=== PATIENT | female | born 1955 | race Caucasian/White ===

== ENCOUNTER 2016-06-08 10:09 | Emergency (ER) | payer OTHER ==
[~2016-06-08] VITALS: Ht 162.6 cm; Wt 77.1 kg
[2016-06-08 10:39] LABS: BILIRUBIN,URINE NEGATIVE (NEG); GLUCOSE,URINE NEGATIVE (NEG); NITRITE,URINE NEGATIVE (NEG); PROTEIN,URINE NEGATIVE (NEG-TRACE); UROBILINOGEN,URINE 0.2 mg/dL (0.2 mg/dL)
[2016-06-08 10:51] LABS: CALCIUM 9.2 mg/dL (8.5-10.1); CREATININE 0.8 mg/dL (0.6-1.0); GFR 73.7; POTASSIUM 3.4 mmol/L (3.5-5.1)
[2016-06-08] MEDS ORDERED: IBUP200T77 PO (10:53)
--- NOTE | 2016-06-08 10:53 | PHYS DOC ---
Past Medical History Past Medical History: No Pertinent History Past Surgical History: No Surgical History Alcohol Use: None Drug Use: None Adult General Chief Complaint Chief Complaint: ABDOMINAL PAIN HPI HPI 52-year-old female presenting to the emergency department with right lower quadrant abdominal pain for the past 48 hours. Her pain is sharp moderate intermittent. Currently it is 2-3 out of 10. It goes as high as 3-4 out of 10. It is not associated with nausea vomiting blood in stool. She does have a history of an ovarian cyst. She denies fevers or chills. She was able to eat breakfast this morning without difficulty. Her pain is nonradiating. She denies vaginal bleeding or vaginal discharge. Review of systems is negative for chest pain shortness of breath fevers chills. All other review of systems is negative unless otherwise noted in history of present illness. Review of Systems Review of Systems SEE ABOVE. Allergies Allergies Allergies Coded Allergies Type Severity Reaction Last Updated Verified No Known Drug Allergies 06/08/16 No Physical Exam Physical Exam Constitutional: Well developed, well nourished, no acute distress, non-toxic appearance. HENT: Normocephalic, atraumatic, bilateral external ears normal, oropharynx moist, no oral exudates, nose normal. [] Eyes: PERRLA, EOMI, conjunctiva normal, no discharge. Neck: Normal range of motion, no tenderness, supple, no stridor. [] Cardiovascular:Heart rate regular rhythm, no murmur Lungs & Thorax: Bilateral breath sounds clear to auscultation Abdomen: Soft nontender abdomen without rebound tenderness or guarding present. Negative McBurneys point. Negative Dunaway sign. No ecchymosis present. Skin: Warm, dry, no erythema, no rash. [] Back: No tenderness, no CVA tenderness. [] Extremities: No tenderness, no cyanosis, no clubbing, ROM intact, no edema. Neurologic: Alert and oriented X 3, normal motor function, normal sensory function, no focal deficits noted. [] Psychologic: Affect normal, judgement normal, mood normal. [] Current Patient Data Vital Signs Vital Signs Date Time Temp Pulse Resp B/P (MAP) Pulse Ox O2 Delivery O2 Flow Rate FiO2 06/08/16 10:13 97.4 93 18 176/93 (120) 96 Room Air 97.4 Lab Values Laboratory Tests Test 06/08/16 10:20 06/08/16 10:26 Urine Collection Type Unknown Urine Color Yellow Urine Clarity Clear Urine pH 7.0 Urine Specific [place] <=1.005 Urine Protein Negative mg/dL (NEG-TRACE) Urine Glucose (UA) Negative mg/dL (NEG) Urine Ketones (Stick) Negative mg/dL (NEG) Urine Blood Trace (NEG) Urine Nitrite Negative (NEG) Urine Bilirubin Negative (NEG) Urine Urobilinogen Dipstick 0.2 mg/dL (0.2 mg/dL) Urine Leukocyte Esterase Negative (NEG) Urine RBC 1-2 /HPF (0-2) Urine WBC 0 /HPF (0-4) Urine Squamous Epithelial Cells Few /LPF Urine Bacteria 0 /HPF (0-FEW) White Blood Count 4.7 x10^3/uL (4.0-11.0) Red Blood Count 4.62 x10^6/uL (3.50-5.40) Hemoglobin 14.5 g/dL (12.0-15.5) Hematocrit 42.3 % (36.0-47.0) Mean Corpuscular Volume 92 fL (79-100) Mean Corpuscular Hemoglobin 32 pg (25-35) Mean Corpuscular Hemoglobin Concent 34 g/dL (31-37) Red Cell Distribution Width 13.5 % (11.5-14.5) Platelet Count 369 x10^3/uL (140-400) Neutrophils (%) (Auto) 48 % (31-73) Lymphocytes (%) (Auto) 45 % (24-48) Monocytes (%) (Auto) 7 % (0-9) Eosinophils (%) (Auto) 1 % (0-3) Basophils (%) (Auto) 1 % (0-3) Neutrophils # (Auto) 2.2 x10^3uL (1.8-7.7) Lymphocytes # (Auto) 2.1 x10^3/uL (1.0-4.8) Monocytes # (Auto) 0.3 x10^3/uL (0.0-1.1) Eosinophils # (Auto) 0.0 x10^3/uL (0.0-0.7) Basophils # (Auto) 0.0 x10^3/uL (0.0-0.2) Sodium Level 141 mmol/L (136-145) Potassium Level 3.4 mmol/L (3.5-5.1) L Chloride Level 102 mmol/L (98-107) Carbon Dioxide Level 29 mmol/L (21-32) Anion Gap 10 (6-14) Blood Urea Nitrogen 12 mg/dL (7-20) Creatinine 0.8 mg/dL (0.6-1.0) Estimated GFR (Cockcroft-Gault) 73.7 BUN/Creatinine Ratio 15 (6-20) Glucose Level 101 mg/dL (70-99) H Calcium Level 9.2 mg/dL (8.5-10.1) Total Bilirubin 0.4 mg/dL (0.2-1.0) Aspartate Amino Transferase (AST) 23 U/L (15-37) Alanine Aminotransferase (ALT) 39 U/L (14-59) Alkaline Phosphatase 97 U/L (46-116) Total Protein 8.3 g/dL (6.4-8.2) H Albumin 3.7 g/dL (3.4-5.0) Albumin/Globulin Ratio 0.8 (1.0-1.7) L Lipase 132 U/L (73-393) Laboratory Tests 06/08/16 10:26 Laboratory Tests 06/08/16 10:26 EKG EKG [] Radiology/Procedures Radiology/Procedures [] Course & Med Decision Making Course & Med Decision Making Pertinent Labs and Imaging studies reviewed. (See chart for details) [] 52-year-old female presenting to the emergency department with right lower quadrant abdominal pain. Vital signs afebrile. Mild hypertension present. Pertinent physical exam findings showed a nontender appendix. Blood work obtained. The patient was in discharged home to follow up with PCP over the next 2-3 days for symptoms continued. The patient was then discharged home in stable condition to follow up with their primary care physician over the next 2- 3 days. They were to return if their symptoms worsened or if they were concerned for any reason. [id number] discharge instructions and return precautions were given. Patient's questions were answered to their satisfaction. Patient is comfortable plan. Dragon Disclaimer Dragon Disclaimer This electronic medical record was generated, in whole or in part, using a voice recognition dictation system. Departure Departure Impression: Primary Impression: Right lower quadrant abdominal pain Disposition: HOME, SELF-CARE Condition: STABLE Referrals: NO PCP (PCP) HUGO DE LA CRUZ MD Patient Instructions: Abdominal Pain, Abdominal Pain, Possible Early Appendicitis Additional Instructions: Thank you for allowing us to participate in your care today. Followup with your primary care physician in 3 days if your symptoms do not improve. If you do not have a primary care provider you can ask for a list of our primary care providers. Return to the emergency department you have any new or concerning findings. This should be evaluated by the primary care physician and any necessary consulting services for continued management within a few days after discharge. Return to emergency room if you have any new or concerning symptoms including but not limited to fever, chills, nausea, vomiting, intractable pain, any new rashes, chest pain, shortness of air, uncontrolled bleeding, difficulty breathing, and/or vision loss. Scripts Potassium Chloride (K-TAB) 10 Meq Tablet.er 10 MEQ PO DAILY, #7 TAB.SR Prov: RACHEL CAMPBELL MD 06/08/16 Ibuprofen (IBUPROFEN) 200 Mg Tablet 200 MG PO PRN Q6HRS Y for INFLAMMATION, #30 TAB Prov: RACHEL CAMPBELL MD 06/08/16 RACHEL CAMPBELL MD June 08, 2016 10:53
[2016-06-08 10:54] LABS: BACTERIA,URINE 0 /HPF (0-FEW); SQUAMOUS EPITHELIAL CELL,UR FEW /LPF; WBC,URINE 0 /HPF (0-4)
[2016-06-08 10:57] LABS: ALBUMIN 3.7 g/dL (3.4-5.0); ALBUMIN/GLOBULIN RATIO 0.8 (1.0-1.7); TOTAL BILIRUBIN 0.4 mg/dL (0.2-1.0); TOTAL PROTEIN 8.3 g/dL (6.4-8.2)
[2016-06-08 11:15] LABS: BASO % 1 % (0-3); EOS % 1 % (0-3); HEMATOCRIT 42.3 % (36.0-47.0); HEMOGLOBIN 14.5 g/dL (12.0-15.5); LYMPH # 2.1 x10^3/uL (1.0-4.8); LYMPH % 45 % (24-48); MEAN CORPUSCULAR HEMOGLOBIN 32 pg (25-35); MEAN CORPUSCULAR HGB CONC 34 g/dL (31-37); MEAN CORPUSCULAR VOLUME 92 fL (79-100); MONO % 7 % (0-9); NEUT % 48 % (31-73); PLATELET COUNT 369 x10^3/uL (140-400); RED BLOOD COUNT 4.62 x10^6/uL (3.50-5.40); RED CELL DISTRIBUTION WIDTH 13.5 % (11.5-14.5); WHITE BLOOD COUNT 4.7 x10^3/uL (4.0-11.0)
[2016-06-08] MEDS ORDERED: POTA10TA PO (11:32)
[2016-06-08 11:45] VITALS: BP 143/82
== END 2016-06-08 11:56 | disposition home or self-care (01) ==
LOC: ER 10:40
DX: R10.31 Right lower quadrant pain (principal)
CPT/HCPCS: 36415; 80053; 81001; 83690; 85027; 99284